=== PATIENT | female | born 1945 | race Caucasian/White ===

== ENCOUNTER → 2017-10-21 | Outpatient (CLI) | payer MEDICARE ==
[~2017-10-21] MED LIST: BIOTIN2500 MCG PO; CARBIDOPA-LEVO1 EAC9 PO; CIPROFLOXACIN500 M1 PO; CLARITIN-D 24 H1 TA1 PO; Cranberry PO; FLUVOXAMINE MA100 MG PO; HYDROCHLOROTH12.5 MG PO; KEFLEX500 MG PO; LEVAQUIN 500 M500 M2 PO; LEVAQUIN 500 M500 M4 PO; LEVOTHYROXIN0.025 MG PO; LUVOX CR100 MG PO; OMEGA-31000 M1 PO; PERCOCET 10-321 EACH PO; PERCOCET 5-3251 EACH PO; PRILOSEC 20 MG20 MG PO; PROAIR HFA8.5 GM INH; Potassium PO; TOPROL XL25 MG PO; TRAMADOL 50 MG50 MG PO; TRAZODONE HCL100 MG PO; TURMERIC500 MG PO; VITAMIN B-12500 MCG PO; VITAMIN D2000 UNIT PO; XANAX 0.5 MG0.5 M1 PO
--- NOTE | 2017-10-21 10:35 | 2DMMODE ---
[place] [address] 2 D/M-MODE ECHOCARDIOGRAM Name: HUMBERTO GOMEZ Room: [facility]#: [id number] Admission: 10/21/17 Attend Phys: Fabian Avila, Discharge: Date of : 43 Date of Service: 10/21/17 1035 Report #: [id number] THIS REPORT FOR: //name// APPROVED REPORT Study performed: 10/21/2017 08:10:24 EXAM: Comprehensive 2D, Doppler, and color-flow Echocardiogram Patient Location: Out-Patient Status: routine BSA: 1.63 HR: 84 bpm BP: 140/78 mmHg Other Information Study Quality: Adequate Indications Aortic Insuff. 2D Dimensions LVEF(%): 43.97 (>50%) IVSd: 11.32 (7-11mm) LVOT Diam: 20.94 (18-24mm) LVDd: 43.77 mm PWd: 8.11 (7-11mm) Ascending Ao: 32.32 (22-36mm) LVDs: 34.33 (25-40mm) Aortic Root: 32.01 mm Venegas's LVEF: 43.97 % Volumes Left Atrial Volume (Systole) LA ESV Index: 17.90 mL/m2 Aortic Valve AoV Peak Jose.: 1.55 m/s AO Peak Gr.: 9.64 mmHg LVOT Max P.06 mmHg AO Mean Gr.: 4.75 mmHg LVOT Mean P.61 mmHg LVOT Max V: 0.87 m/s AO V2 VTI: 29.35 cm LVOT Mean V: 0.59 m/s KAELYN (VTI): 2.29 cm2 LVOT V1 VTI: 19.55 cm AI [place]: 5.43 m/s2 AI PHT: 228.59 [place] [address] 2 D/M-MODE ECHOCARDIOGRAM Name: HUMBERTO GOMEZ Room: [facility]#: [id number] Admission: 10/21/17 Attend Phys: Fabian Avila, Discharge: Date of : 43 Date of Service: 10/21/17 1035 Report #: [id number] E/A Ratio: 0.42 MV Decel. Time: 113.96 ms MV E Max Jose.: 0.43 m/s MV PHT: 33.05 ms MVA (PHT): 6.66 cm2 TDI E/Lateral E': 4.78 E/Medial E': 4.78 Medial E' Jose.: 0.09 m/s Lateral E' Jose.: 0.09 m/s Pulmonary Valve PV Peak Jose.: 0.82 m/s PV Peak Gr.: 2.68 mmHg Tricuspid Valve TR Peak Gr.: 16.76 mmHg RVSP: 21.76 mmHg Left Ventricle The left ventricle is normal size. There is normal LV segmental wall motion. There is normal left ventricular wall thickness. Left ventricular systolic function is normal. The left ventricular ejection fraction is within the normal range. LVEF is 55-60%. Grade I - abnormal relaxation pattern. Right Ventricle The right ventricle is normal size. The right ventricular systolic function is normal. Atria The left atrium size is normal. The right atrium size is normal. Aortic Valve Aortic valve is calcified. Moderate aortic regurgitation. There is no aortic valvular stenosis. Mitral Valve The mitral valve is normal in structure. There is no mitral valve regurgitation noted. No evidence of mitral valve stenosis. Tricuspid Valve The tricuspid valve is normal in structure. Mild tricuspid regurgitation. The RVSP is __21.8 mmHg. Pulmonic Valve The pulmonary valve is normal in structure. [place] [address] 2 D/M-MODE ECHOCARDIOGRAM Name: HUMBERTO GOMEZ Room: [facility]#: [id number] Admission: 10/21/17 Attend Phys: Fabian Avila, Discharge: Date of : 43 Date of Service: 10/21/17 1035 Report #: [id number] valvular regurgitation. Great Vessels The aortic root is normal in size. IVC is normal in size and collapses with >50% inspiration Pericardium There is no pericardial effusion. <Conclusion> The left ventricle is normal size. There is normal left ventricular wall thickness. Left ventricular systolic function is normal. The left ventricular ejection fraction is within the normal range. LVEF is 55-60%. Grade I - abnormal relaxation pattern. The right ventricle is normal size. The left atrium size is normal. Aortic valve is calcified. Moderate aortic regurgitation. There is no aortic valvular stenosis. The mitral valve is normal in structure. The tricuspid valve is normal in structure. Mild tricuspid regurgitation. The RVSP is __21.8 mmHg. IVC is normal in size and collapses with >50% inspiration There is normal LV segmental wall motion. <ELECTRONICALLY SIGNED> By: Сергей Guerrero MD, FACC 10/21/17 1035 1035 1035 Сергей Guerrero MD, FACC /INF
== END ==
LOC: M.CRD 07:47
PROVIDERS: Internal Medicine Cardiovascular Disease
DX: I71.2 Thoracic aortic aneurysm, without rupture (principal); I70.8 Atherosclerosis of other arteries; I77.1 Stricture of artery; I08.2 Rheumatic disorders of both aortic and tricuspid valves; I71.9 Aortic aneurysm of unspecified site, without rupture; E78.5 Hyperlipidemia, unspecified

== ENCOUNTER → 2019-05-18 | Outpatient (CLI) | payer MEDICARE ==
--- NOTE | 2019-05-18 16:04 | 2DMMODE ---
[place] [address] 2 D/M-MODE ECHOCARDIOGRAM Name: HUMBERTO GOMEZ Room: [facility]#: [id number] Admission: 05/18/19 Attend Phys: Fabian Avila, Discharge: Date of : 43 Date of Service: 05/18/19 1604 Report #: [id number] THIS REPORT FOR: //name// APPROVED REPORT Study performed: 05/18/2019 09:43:36 EXAM: Comprehensive 2D, Doppler, and color-flow Echocardiogram Patient Location: Out-Patient BSA: 1.64 HR: 74 bpm BP: 140/70 mmHg Other Information Study Quality: Good Indications Aortic Valve Disease 2D Dimensions IVSd: 10.05 (7-11mm) LVOT Diam: 20.00 (18-24mm) LVDd: 48.98 mm PWd: 9.87 (7-11mm) Ascending Ao: 37.07 (22-36mm) LVDs: 32.15 (25-40mm) Aortic Root: 30.81 mm Volumes Left Atrial Volume (Systole) LA ESV Index: 15.70 mL/m2 Aortic Valve AoV Peak Jose.: 1.40 m/s AO Peak Gr.: 7.83 mmHg LVOT Max P.20 mmHg AO Mean Gr.: 3.82 mmHg LVOT Mean P.27 mmHg LVOT Max V: 1.34 m/s AO V2 VTI: 30.65 cm LVOT Mean V: 0.82 m/s KAELYN (VTI): 3.18 cm2 LVOT V1 VTI: 31.03 cm AI [place]: 3.93 m/s2 AI PHT: 270.39 ms Mitral Valve E/A Ratio: 0.70 MV Decel. Time: 244.49 ms MV E Max Jose.: 0.59 m/[place] [address] 2 D/M-MODE ECHOCARDIOGRAM Name: HUMBERTO GOMEZ Room: [facility]#: [id number] Admission: 05/18/19 Attend Phys: Fabian Avila, Discharge: Date of : 43 Date of Service: 05/18/19 1604 Report #: [id number] MV PHT: 70.90 ms MVA (PHT): 3.10 cm2 TDI E/Lateral E': 6.56 E/Medial E': 7.38 Medial E' Jose.: 0.08 m/s Lateral E' Jose.: 0.09 m/s Pulmonary Valve PV Peak Jose.: 0.77 m/s PV Peak Gr.: 2.39 mmHg Tricuspid Valve RAP Estimate: 5.00 mmHg TR Peak Gr.: 18.58 mmHg RVSP: 23.58 mmHg PA Pressure: 23.58 mmHg Left Ventricle The left ventricle is normal size. There is normal LV segmental wall motion. There is normal left ventricular wall thickness. Left ventricular systolic function is normal. The left ventricular ejection fraction is within the normal range. LVEF is 55-60%. Grade I - abnormal relaxation pattern. Right Ventricle The right ventricle is normal size. The right ventricular systolic function is normal. Atria The left atrium size is normal. The right atrium size is normal. Aortic Valve Aortic valve is mildly calcified. Moderate aortic regurgitation. There is no aortic valvular stenosis. Mitral Valve The mitral valve is normal in structure. Mild mitral regurgitation. No evidence of mitral valve stenosis. Tricuspid Valve The tricuspid valve is normal in structure. Mild tricuspid regurgitation. Pulmonic Valve The pulmonary valve is normal in structure. There is no pulmon[place] [address] 2 D/M-MODE ECHOCARDIOGRAM Name: HUMBERTO GOMEZ Shari Room: [facility]#: [id number] Admission: 05/18/19 Attend Phys: Fabian Avila, Discharge: Date of : 43 Date of Service: 05/18/19 1604 Report #: [id number] Great Vessels The aortic root is normal in size. IVC is normal in size and collapses >50% with inspiration. Pericardium There is no pericardial effusion. <Conclusion> The left ventricle is normal size. There is normal left ventricular wall thickness. Left ventricular systolic function is normal. The left ventricular ejection fraction is within the normal range. LVEF is 55-60%. Grade I - abnormal relaxation pattern. The right ventricle is normal size. The left atrium size is normal. Aortic valve is mildly calcified. Moderate aortic regurgitation. There is no aortic valvular stenosis. The mitral valve is normal in structure. Mild mitral regurgitation. The tricuspid valve is normal in structure. Mild tricuspid regurgitation. IVC is normal in size and collapses >50% with inspiration. There is no pericardial effusion. There is normal LV segmental wall motion. <ELECTRONICALLY SIGNED> By: Сергей Guerrero MD, FACC 05/18/19 1604 1604 1604 Сергей Guerrero MD, FACC /INF
== END ==
LOC: M.LAB 08:30 → M.CT 09:30 → M.CRD 10:00
PROVIDERS: Internal Medicine Cardiovascular Disease
DX: S22.31XA Fracture of one rib, right side, initial encounter for closed fracture (principal); I77.810 Thoracic aortic ectasia; I35.1 Nonrheumatic aortic (valve) insufficiency; Q27.8 Other specified congenital malformations of peripheral vascular system; Z79.899 Other long term (current) drug therapy; X58.XXXA Exposure to other specified factors, initial encounter; Y93.89 Activity, other specified; Y92.89 Other specified places as the place of occurrence of the external cause; Y99.8 Other external cause status

== ENCOUNTER → 2020-07-17 | Outpatient (CLI) | payer MEDICARE | LOC: M.ULTRA 10:00 | PROVIDERS: ATTEND Psychiatry & Neurology Neurology | DX: R22.1 Localized swelling, mass and lump, neck (principal) ==

== ENCOUNTER → 2020-07-23 | Outpatient (CLI) | payer MEDICARE | LOC: M.CT 07:39 | PROVIDERS: ATTEND Psychiatry & Neurology Neurology | DX: I25.10 Atherosclerotic heart disease of native coronary artery without angina pectoris (principal); R22.1 Localized swelling, mass and lump, neck ==

== ENCOUNTER → 2020-09-17 | Outpatient (CLI) | payer MEDICARE ==
--- NOTE | 2020-09-17 14:17 | 2DMMODE ---
[place] [address] 2 D/M-MODE ECHOCARDIOGRAM Name: HUMBERTO GOMEZ Room: [facility]#: [id number] Admission: 09/17/20 Attend Phys: Fabian Avila, Discharge: Date of : 43 Date of Service: 09/17/20 1417 Report #: [id number] THIS REPORT FOR: cc: Mikki Gabriel MD, Rebecca MD Liston, Michael J. MD LOCATED WITHIN [facility] ~ APPROVED REPORT Study performed: 09/17/2020 08:00:07 EXAM: Comprehensive 2D, Doppler, and color-flow Echocardiogram Patient Location: Out-Patient BSA: 1.60 HR: 85 bpm BP: 135/68 mmHg Other Information Study Quality: Good Indications Aortic Valve Disease Dyspnea 2D Dimensions IVSd: 12.26 (7-11mm) LVOT Diam: 20.12 (18-24mm) LVDd: 41.41 mm PWd: 10.61 (7-11mm) Ascending Ao: 35.12 (22-36mm) LVDs: 31.75 (25-40mm) Aortic Root: 34.62 mm Volumes Left Atrial Volume (Systole) LA ESV Index: 19.40 mL/m2 Aortic Valve AoV Peak Jose.: 1.29 m/s AO Peak Gr.: 6.65 mmHg LVOT Max P.94 mmHg AO Mean Gr.: 3.42 mmHg LVOT Mean P.22 mmHg LVOT Max V: 1.11 m/s AO V2 VTI: 23.81 cm LVOT Mean V: 0.68 m/s KAELYN (VTI): 3.03 cm2 LVOT V1 VTI: 22.67 [place] [address] 2 D/M-MODE ECHOCARDIOGRAM Name: HUMBERTO GOMEZ Room: [facility]#: [id number] Admission: 09/17/20 Attend Phys: Fabian Avila, Discharge: Date of : 43 Date of Service: 09/17/20 1417 Report #: [id number] E/A Ratio: 0.63 MV Decel. Time: 246.56 ms MV E Max Jose.: 0.56 m/s MV PHT: 71.50 ms MVA (PHT): 3.08 cm2 TDI E/Lateral E': 8.00 E/Medial E': 8.00 Medial E' Jose.: 0.07 m/s Lateral E' Jose.: 0.07 m/s Pulmonary Valve PV Peak Jose.: 0.86 m/s PV Peak Gr.: 2.93 mmHg Tricuspid Valve RAP Estimate: 5.00 mmHg TR Peak Gr.: 11.71 mmHg RVSP: 16.71 mmHg PA Pressure: 16.71 mmHg Left Ventricle The left ventricle is normal size. There is normal LV segmental wall motion. Mild concentric left ventricular hypertrophy. Left ventricular systolic function is normal. LVEF is 60-65%. Grade I - abnormal relaxation pattern. Right Ventricle The right ventricle is normal size. The right ventricular systolic function is normal. Atria The left atrium size is normal. The right atrium size is normal. Aortic Valve Aortic valve is mildly calcified. Mild to moderate aortic regurgitation. There is no aortic valvular stenosis. Mitral Valve The mitral valve is normal in structure. There is no mitral valve regurgitation noted. No evidence of mitral valve stenosis. Tricuspid Valve The tricuspid valve is normal in structure. Trace tricuspid regurgitation. No pulmonary hypertension[place] [address] 2 D/M-MODE ECHOCARDIOGRAM Name: HUMBERTO GOMEZ Room: [facility]#: [id number] Admission: 09/17/20 Attend Phys: Fabian Avila, Discharge: Date of : 43 Date of Service: 09/17/20 1417 Report #: [id number] The pulmonary valve is normal in structure. There is no pulmonic valvular regurgitation. Great Vessels The aortic root is normal in size. IVC is normal in size and collapses >50% with inspiration. Pericardium There is no pericardial effusion. <Conclusion> The left ventricle is normal size. Mild concentric left ventricular hypertrophy. Left ventricular systolic function is normal. LVEF is 60-65%. Grade I - abnormal relaxation pattern. Aortic valve is mildly calcified. Mild to moderate aortic regurgitation. There is no aortic valvular stenosis. Trace tricuspid regurgitation. No pulmonary hypertension. IVC is normal in size and collapses >50% with inspiration. <ELECTRONICALLY SIGNED> By: Fabian Avila MD, FACC 09/17/20 141 16 16 Fabian Avila MD, FACC /INF
== END ==
LOC: M.CT 03-15 14:17 → M.CRD 08:00
PROVIDERS: ATTEND Internal Medicine Cardiovascular Disease
DX: I35.1 Nonrheumatic aortic (valve) insufficiency (principal); I71.2 Thoracic aortic aneurysm, without rupture

== ENCOUNTER 2021-04-11 16:10 | Inpatient (IN) | payer OTHER ==
[~2021-04-11] VITALS: Ht 167.6 cm; Wt 49.9 kg
[2021-04-11 16:15] VITALS: BP 183/93
[2021-04-11 16:50] LABS: ABSOLUTE BASOPHILS 0.1 thou/uL (0.0-0.2); ABSOLUTE EOSINOPHILS 0.1 thou/uL (0.0-0.7); ABSOLUTE LYMPHOCYTES 0.9 thou/uL (0.8-5.3); ABSOLUTE MONOCYTES 0.5 thou/uL (0.0-1.2); BASOPHILS 0.7 %; EOSINOPHILS 1.4 %; HEMATOCRIT 29.7 % (37.0-47.0); HEMOGLOBIN 9.6 gm/dL (12.0-15.0); LYMPHOCYTES 10.6 %; MCH 19.3 pg (26.0-34.0); MCHC 32.2 g/dL (28.0-37.0); MCV 60.1 fL (80.0-100.0); MONOCYTES 5.9 %; NUCLEATED RBCS 0 /100WBC; PLATELET COUNT* 246 thou/uL (150-400); POLYS 81.4 %; RBC 4.94 mil/uL (4.20-5.00); RDW-CV 16.3 % (10.5-14.5); WBC 8.6 thou/uL (4.0-11.0)
[2021-04-11 17:04] LABS: CALCIUM 8.8 mg/dL (8.5-10.1); CREATININE 1.1 mg/dL (0.6-1.3); POTASSIUM 3.6 mmol/L (3.5-5.1)
--- NOTE | 2021-04-11 17:09 | EKG ---
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
[2021-04-11 17:17] LABS: ALBUMIN 3.9 g/dL (3.4-5.0); TOTAL PROTEIN 6.8 g/dL (6.4-8.2)
--- NOTE | 2021-04-11 18:04 | NUR ---
PT'S FAMILY FRIEND LEFT AND TOOK PATIENT'S PURSE HOME.
[2021-04-11 19:11] LABS: ANISOCYTOSIS 1+; PLATELET ESTIMATE ADEQUATE
[2021-04-11 19:12] LABS: HYPOCHROMASIA 2+; MICROCYTES 3+
--- NOTE | 2021-04-11 19:12 | NUR ---
REPORT RECEIVED FROM KIZZY, PT CURRENTLY RESTING EYES CLOSED; RECEIVED ATIVAN PRIOR TO ARRIVAL; WILL CONTINUE TO MONITOR.
[2021-04-11 21:30] VITALS: BP 165/78; BP 188/86
--- NOTE | 2021-04-11 22:00 | NUR ---
RECEIVED REPORT FROM ER, PT TO UNIT, AMBULATED FROM CART TO BED. PT EXTREMELY RESTLESS, CONFUSED, AGITATED, ATTEMPTING TO GET OUT OF BED CONSTANTLY AND INCONT OF URINE. SITTER AT BEDSIDE. PT ABLE TO ANSWER ALL QUESTIONS CORRECTLY BUT UNABLE TO FOLLOW EVEN SIMPLE DIRECTIONS. TELEMETRY APPLIED SHOWING ST WITH BBB. IV FLUIDS STARTED. WILL CONT TO MONITOR AND ASSIST NEEDED. SITTER REMAINS AT BEDSIDE.
[2021-04-12] VITALS: BP 168/81
[2021-04-12 04:00] VITALS: BP 121/61
[2021-04-12 04:58] LABS: URINE BILIRUBIN NEGATIVE (Negative); URINE BLOOD TRACE (Negative); URINE CLARITY CLEAR; URINE COLOR YELLOW; URINE GLUCOSE-RANDOM NEGATIVE (Negative); URINE KETONES NEGATIVE (Negative); URINE LEUKOCYTES-REFLEX NEGATIVE (Negative); URINE NITRITE-REFLEX NEGATIVE (Negative); URINE PROTEIN NEGATIVE (Negative); URINE UROBILINOGEN 0.2 E.U./dl (0.2-1.0)
--- NOTE | 2021-04-12 06:37 | NUR ---
AWAKE ALL NIGHT, RESTLESS. AT THE NIGHT HAS PROGRESSED PT BECOMING MORE ORIENTED, LESS RESTLESS, COOPERATIVE AND ABLE TO FOLLOW DIRECTIONS. VOIDING PER BSC AND INCONT, WEARING BRIEFS. TELEMETRY CONT TO SHOW SR WITH BBB. HS GOALS OF REST AND SAFETY ACHIEVED. HOURLY ROUNDING OBSERVED. PT NOT USING CALL LIGHT BUT ABLE TO CALL OUT FOR NEEDS.
[2021-04-12 08:00] VITALS: BP 172/69
[2021-04-12 09:06] LABS: CALCIUM 8.4 mg/dL (8.5-10.1); CREATININE 0.8 mg/dL (0.6-1.3); POTASSIUM 3.4 mmol/L (3.5-5.1)
[2021-04-12 09:09] LABS: MAGNESIUM 1.8 mg/dL (1.8-2.4); PHOSPHORUS* 2.4 mg/dL (2.5-4.9)
--- NOTE | 2021-04-12 10:39 | NUR ---
CM ASSESSMENT: PT A&O, AND NORMALLY INDEPENDENT WITH ADL'S. PT INFORMS THAT HER NEIGHBOR ASSIST WITH MEALS AND FIRST CRUSHER. PT RESIDES AT HOME ALONE. PT USES A WALKER FOR MOBILITY. PT HAS 0 HX OF HH OR SNF. PT INFORMS THAT SHE WILL NEED ASSISTANCE WITH TRANSPORTATION AT D/C. CM INFORMED PT THAT A CAB CAN BE ARRANGED FOR HER AT D/C. CM WILL REMAIN AVAILABLE TO ASSIST AND FOLLOW NEEDED.
[2021-04-12 12:32] VITALS: BP 166/65
[2021-04-12 13:59] VITALS: BP 166/65
[2021-04-12 14:23] VITALS: BP 166/65
== END 2021-04-12 14:59 | disposition home health service (06) | DRG 557 ==
LOC: M.ERS 16:10 → M.TBA-ER 18:24 → M.2W 18:24
PROVIDERS: Emergency Medicine Emergency Medical Services; ADMIT Internal Medicine; ATTEND Internal Medicine
DX: M62.82 Rhabdomyolysis (principal); G92 Toxic encephalopathy; Z20.822 Contact with and (suspected) exposure to COVID-19; E78.5 Hyperlipidemia, unspecified; G62.9 Polyneuropathy, unspecified; D64.9 Anemia, unspecified; G20 Parkinson's disease; G31.84 Mild cognitive impairment of uncertain or unknown etiology; Z90.49 Acquired absence of other specified parts of digestive tract; Z86.73 Personal history of transient ischemic attack (TIA), and cerebral infarction without residual deficits; Z87.891 Personal history of nicotine dependence

== ENCOUNTER → 2021-09-19 | Outpatient (CLI) | payer OTHER ==
[2021-09-19 12:51] LABS: CREATININE 1.1 mg/dL (0.6-1.3)
--- NOTE | 2021-09-19 14:43 | 2DMMODE ---
[place] [address] 2 D/M-MODE ECHOCARDIOGRAM Name: HUMBERTO GOMEZ Room: [facility]#: [id number] Admission: 09/19/21 Attend Phys: Fabian Avila, Discharge: Date of : 43 Date of Service: 09/19/21 1442 Report #: [id number] THIS REPORT FOR: cc: Mikki Gabriel MD, Rebecca MD Holkins, John M. MD [facility] ~ APPROVED REPORT Study performed: 09/19/2021 13:39:13 EXAM: Comprehensive 2D, Doppler, and color-flow Echocardiogram Patient Location: Out-Patient Status: routine BSA: 1.60 HR: 80 bpm Rhythm: NSR Other Information Study Quality: Good Indications THORACIC AORTA ANEURYSM 2D Dimensions IVSd: 8.21 (7-11mm) LVOT Diam: 19.58 (18-24mm) LVDd: 51.15 mm PWd: 10.21 (7-11mm) Ascending Ao: 40.48 (22-36mm) LVDs: 34.47 (25-40mm) Aortic Arch: 31.0 (22-36mm) Desc Ao: 34.0 (20-30mm) Aortic Root: 34.12 mm Volumes Left Atrial Volume (Systole) LA ESV Index: 26.30 mL/m2 Aortic Valve AoV Peak Jose.: 1.28 m/s AO Peak Gr.: 6.55 mmHg LVOT Max P.92 mmHg AO Mean Gr.: 3.17 mmHg LVOT Mean P.73 mmHg LVOT Max V: 1.22 m/s AO V2 VTI: 26.09 cm LVOT Mean V: 0.76 m/s KAELYN (VTI): 3.13 cm2 LVOT V1 VTI: 27.13 [place] [address] 2 D/M-MODE ECHOCARDIOGRAM Name: HUMBERTO GOMEZ Room: [facility]#: [id number] Admission: 09/19/21 Attend Phys: Fabian Avila, Discharge: Date of : 43 Date of Service: 09/19/21 1442 Report #: [id number] AI [place]: 3.35 m/s2 AI PHT: 280.62 ms Mitral Valve E/A Ratio: 0.62 MV Decel. Time: 153.95 ms MV E Max Jose.: 0.70 m/s MV PHT: 44.65 ms MVA (PHT): 4.93 cm2 TDI E/Lateral E': 7.00 E/Medial E': 7.78 Medial E' Jose.: 0.09 m/s Lateral E' Jose.: 0.10 m/s Pulmonary Valve PV Peak Jsoe.: 0.75 m/s PV Peak Gr.: 2.28 mmHg Tricuspid Valve RAP Estimate: 5.00 mmHg TR Peak Gr.: 18.26 mmHg RVSP: 23.00 mmHg PA Pressure: 23.00 mmHg Left Ventricle The left ventricle is normal size. There is normal LV segmental wall motion. Mild concentric left ventricular hypertrophy. Left ventricular systolic function is normal. The left ventricular ejection fraction is within the normal range. LVEF is 55-60%. Grade I - abnormal relaxation pattern. Right Ventricle The right ventricle is normal size. The right ventricular systolic function is normal. Atria The left atrium size is normal. The right atrium size is normal. Aortic Valve Moderate aortic valve sclerosis. Moderate aortic regurgitation. There is no aortic valvular stenosis. Mitral Valve The mitral valve is normal in structure. Mild mitral regurgitation. No evidence of [place] [address] 2 D/M-MODE ECHOCARDIOGRAM Name: HUMBERTO GOMEZ CHERRY Room: [facility]#: [id number] Admission: 09/19/21 Attend Phys: Fabian Avila, Discharge: Date of : 43 Date of Service: 09/19/21 1442 Report #: [id number] Tricuspid Valve The tricuspid valve is normal in structure. Trace tricuspid regurgitation. No pulmonary hypertension. Pulmonic Valve The pulmonary valve is normal in structure. There is no pulmonic valvular regurgitation. Great Vessels The aortic root is normal in size. Descending aorta is mildly dilated. Aortic arch is upper limits of normal in size. Ascending aorta is mildly dilated. IVC is normal in size and collapses >50% with inspiration. Pericardium There is no pericardial effusion. <Conclusion> The left ventricle is normal size. Mild concentric left ventricular hypertrophy. Left ventricular systolic function is normal. The left ventricular ejection fraction is within the normal range. LVEF is 55-60%. Grade I - abnormal relaxation pattern. The right ventricle is normal size. The left atrium size is normal. Moderate aortic valve sclerosis. Moderate aortic regurgitation. There is no aortic valvular stenosis. The mitral valve is normal in structure. Mild mitral regurgitation. The tricuspid valve is normal in structure. IVC is normal in size and collapses >50% with inspiration. There is no pericardial effusion. There is normal LV segmental wall motion. Descending aorta is mildly dilated. Aortic arch is upper limits of normal in size. Ascending aorta is mildly dilated. <ELECTRONICALLY SIGNED> By: Сергей Guerrero MD, FACC 09/19/21 1442 144 144 Сергей Guerrero MD, FACC /INF
== END ==
LOC: M.CRD 09-17 12:00 → M.CT 09-17 12:00 → M.LAB 09-17 12:00 → M.CT 09-17 13:00 → M.LAB 09-18 12:00 → M.CT 09-18 13:00 → M.LAB 11:55 → M.CT 13:00 → M.LAB 09-25 12:00 → M.CT 09-25 13:00
PROVIDERS: ATTEND Internal Medicine Cardiovascular Disease
DX: Z01.812 Encounter for preprocedural laboratory examination (principal); I08.0 Rheumatic disorders of both mitral and aortic valves; J98.11 Atelectasis; I70.0 Atherosclerosis of aorta; R91.1 Solitary pulmonary nodule; M25.78 Osteophyte, vertebrae; I10 Essential (primary) hypertension; I71.2 Thoracic aortic aneurysm, without rupture